=== PATIENT | male | born 1965 | race African-American/Black ===

== ENCOUNTER 2018-11-26 13:41 | Emergency (ER) | payer OTHER ==
[2018-11-26 13:46] VITALS: TEMP 98.2; BMI 22.1
--- NOTE | 2018-11-26 15:21 | PDOC ---
History of Present Illness - General Chief Complaint: Pain Stated Complaint: SWOLLEN GROIN Time Seen by Provider: 11/26/18 15:18 History Source: Patient Exam Limitations: No Limitations - History of Present Illness Initial Comments: 53 yo M w a pmh of HTN, HLD, Asthma, GERD, Depression, schizophrenia, and osteoarthritis presents to the ER with a month of right testicular pain. He states the pain has not worsened but he came to the hospital to be evaluated bc it has not gone away and now he is concerned. He states his pain is currently an 8/10. He describes the pain as a stabbing sensation which does not radiate. The pain is isolated to his testicles and he has no penile pain. He denies having any recent weight loss, abdominal pain, nausea, vomiting, chest pain, SOB, difficulty breathing, dysuria, frequency, urgency, recent fevers, chills, or infections. PCP: Dr. Gilbert PSH: right hip arthroplasty Allergies: Aripiprazole, penicillins, ziprasidone Social Hx: Smokes 2 PPD for many years. Denies alcohol or other substance usage. Past History - Past Medical History Allergies/Adverse Reactions: Allergies Allergy/AdvReac Type Severity Reaction Status Date / Time aripiprazole [From Abilify] Allergy Verified 11/26/18 13:47 Penicillins Allergy Verified 11/26/18 13:47 ziprasidone HCl [From Geodon] Allergy Verified 11/26/18 13:47 ziprasidone mesylate Allergy Verified 11/26/18 13:47 [From Geodon] Home Medications: Ambulatory Orders Albuterol Sulfate [Proventil HFA Inhaler -] 2 inh PO BID 11/26/18 Aspirin [ASA -] 325 mg PO DAILY 11/26/18 Ciprofloxacin [Cipro -] 500 mg PO Q12H #28 tablet 11/26/18 Clozapine 200 mg PO HS 11/26/18 Divalproex Sodium [Depakote ER] 500 mg PO DAILY 11/26/18 Divalproex Sodium [Depakote ER] 750 mg PO HS 11/26/18 Docusate Sodium [Colace -] 100 mg PO BID 11/26/18 Famotidine [Pepcid -] 20 mg PO DAILY 11/26/18 Ferrous Sulfate [Feosol] 325 mg PO DAILY 11/26/18 Metoprolol Succinate 25 mg PO DAILY 11/26/18 Mv-Mins/Folic Acid/Guarana/Caf [One Daily Tablet] 1 each PO DAILY 11/26/18 Omeprazole Magnesium [Prilosec Otc] 20 mg PO DAILY 11/26/18 Risperidone [Risperdal -] 1 mg PO HS 11/26/18 Risperidone [Risperdal] 3 mg PO DAILY 11/26/18 Sertraline HCl [Zoloft -] 100 mg PO DAILY 11/26/18 clonazePAM [Klonopin -] 0.5 mg PO HS 11/26/18 Anemia: No Asthma: No Cancer: No Cardiac Disorders: No CVA: No COPD: Yes CHF: No Dementia: No Diabetes: No GI Disorders: Yes (GERD) Disorders: No HTN: Yes Hypercholesterolemia: Yes Liver Disease: No Seizures: No Thyroid Disease: No - Suicide/Smoking/Psychosocial Hx Smoking History: Never smoked Have you smoked in the past 12 months: Yes Number of Cigarettes Smoked Daily: 10 'Breaking Loose' booklet given: 05/23/14 Hx Alcohol Use: No Drug/Substance Use Hx: No Substance Use Type: None Hx Substance Use Treatment: No Review of Systems - Review of Systems Able to Perform ROS?: Yes Comments:: CONSTITUTIONAL: Absent: fever, no chills, no fatigue EYES: Absent: visual changes ENT: Absent: ear pain, no sore throat CARDIOVASCULAR: Absent: chest pain, no palpitations RESPIRATORY: Absent: cough, no SOB GI: Absent: abdominal pain, no nausea, no vomiting, no constipation, no diarrhea GENITOURINARY: Present: Testicular pain Absent: dysuria, no frequency, no hematuria MUSKULOSKELETAL: Absent: back pain, no arthralgia, no myalgia SKIN: Absent: rash NEURO: Absent: headache *Physical Exam - Vital Signs Last Vital Signs Temp Pulse Resp BP Pulse Ox 98.2 F 103 H 18 100/61 100 11/26/18 13:45 11/26/18 13:45 11/26/18 13:45 11/26/18 13:45 11/26/18 13:45 - Physical Exam Comments: TESTICLES: Right: Painful to touch. Enlarged and Hard. Does not illuminate with a flashlight. Left: Normal in size and not tender to palpation. GENERAL: Well-appearing, well-nourished. No apparent distress. HEENT: Normocephalic, atraumatic. PERRL, EOM intact. CARDIOVASCULAR: Normal S1, S2. tachycardic rate and regular rhythm. PULMONARY: No evidence of respiratory distress. Lungs clear to auscultation bilaterally. No wheezing, rales or rhonchi. ABDOMEN: Soft, non-distended, non-tender. EXTREMITIES: Normal ROM in all four extremities. No gross deformities. SKIN: Warm, dry. No rash NEUROLOGICAL: No focal neurological deficits. ED Treatment Course - LABORATORY CBC & Chemistry Diagram: 11/26/18 15:48 11/26/18 15:48 Medical Decision Making - Medical Decision Making 53 yo M w a pmh of HTN, HLD, Asthma, GERD, Depression, schizophrenia, and osteoarthritis presents to the ER with a month of right testicular pain. He states the pain has not worsened but he came to the hospital to be evaluated bc it has not gone away and now he is concerned. He states his pain is currently an 8/10. He describes the pain as a stabbing sensation which does not radiate. The pain is isolated to his testicles and he has no penile pain. VS: mildly tachy, otherwise wnl DDx IBNLT: Testicular torsion, hydrocele, epidydimitis, orchitis, UTI, prostatitis, testicular cancer, hernia. Plan: Labs, Urine - tumor markers, Testicular US, CXR, EKG, analgesia, re- assess. Labs unremarkable Urine shows gross infection w 3+ LE and greater than 500 wbcs. - will start treatment in ED with probably Cipro - Will give patient Uro follow up as well. Testicular US shows epididymo-orchitis. - Will treat with cipro. *DC/Admit/Observation/Transfer Diagnosis at time of Disposition: Epididymitis with abscess, Orchitis and epididymitis, Testicular pain, right - Discharge Dispostion Disposition: HOME Condition at time of disposition: Stable Decision to Admit order: No - Prescriptions Prescriptions: Ciprofloxacin [Cipro -] 500 mg PO Q12H #28 tablet - Referrals Referrals: Bassam Nick MD [Staff Physician] - - Patient Instructions Printed Discharge Instructions: Epididymitis, DI for Epididymitis Additional Instructions: You came into the ER with Testicular pain. We looked at your urine and did an ultrasound of your testicle which showed that you have a bad infection in your testicle called epidydimitis and orchitis. We are sending antibiotics to your pharmacy for you to take twice a day for the next 14 days. YOU MUST CALL THE UROLOGIST WE ARE REFERRING YOU TO AND SCHEDULE AN APPOINTMENT SOON POSSIBLE IN THE NEXT 48 HOURS. Come back to the ER immediately if your pain worsens, you get a fever, or have any other new or worsening concerns. Thank you for coming to the [facility] ER. We hope you feel better soon! Print Language: BURKINAN - Post Discharge Activity
[2018-11-26] MEDS ORDERED: SODIUM CHLORIDE 0.9% 500 ML INFUS.BAG IV ONE (15:28)
[2018-11-26] MEDS ORDERED: IBUPROFEN 400 MG TABLET (FP) PO ONE ×2 (15:46→18:31)
[2018-11-26 15:58] LABS: BASO % 0.6 % (0-2.0); EOS % 0.6 % (0-4.5); HEMATOCRIT 36.1 % (35.4-49); HEMOGLOBIN 11.8 GM/dL (11.7-16.9); LYMPH % 19.7 % (8-40); MCH 30.1 pg (25.7-33.7); MCHC 32.6 g/dl (32.0-35.9); MEAN CELL VOLUME 92.6 fl (80-96); MEAN PLT VOLUME 7.1 fl (7.5-11.1); MONO % 12.3 % (3.8-10.2); NEUT % 66.8 % (42.8-82.8); PLATELET COUNT 320 K/MM3 (134-434)
--- NOTE | 2018-11-26 16:20 | PDOC ---
Attending Attestation - HPI HPI: 11/26/18 16:40 The patient is a 53 year old male, with a significant past medical history of HTN, HLD, Asthma, GERD, Depression, schizophrenia, and osteoarthritis, who presents to the emergency department with, 2 months of intermittent, pressure- like right sided testicular pain and hardening worsening with movement. The patient is not sexually active. He denies any recent fevers, chills, headache or dizziness. He denies any recent nausea, vomit, diarrhea or constipation. He denies any recent chest pain or shortness of breath. He denies any recent dysuria, frequency, urgency or hematuria. Allergies: Aripiprazole, penicillins, ziprasidone Past surgical history: right hip arthroplasty Social History: 2PPD Smoker. Primary Care Physician: Dr. Gilbert - Physicial Exam PE: 11/26/18 16:45 GENERAL: Awake, alert, and fully oriented, in no acute distress HEAD: No signs of trauma ABDOMEN: Soft, nontender. No guarding, no rebound. No masses Testicles: +Right: Tenderness but vertical lining. Mildly larger than left. Sensation intact. Negative erythema or lesions. EXTREMITIES: Normal range of motion, no edema. No clubbing or cyanosis. No cords, erythema, or tenderness NEUROLOGICAL: Cranial nerves II through XII grossly intact. Normal speech. SKIN: Warm, Dry, normal turgor, no rashes or lesions noted. <Mare Castaneda - Last Filed: 11/26/18 16:45> - Resident Resident Name: Raul Seals - ED Attending Attestation I have performed the following: I have examined & evaluated the patient, The case was reviewed & discussed with the resident, I agree w/resident's findings & plan, Exceptions are as noted - Medical Decision Making 11/26/18 16:20 A portion of this note was documented by scribe services under my direction. I have reviewed the details of the note, within reason, and agree with the documentation with the following case summary and management plan written by me. Patient treated in the ED. Nursing notes are reviewed and incorporated into the medical decision-making. Vital signs reviewed. Peripheral IV access obtained by the nurse, laboratory studies are drawn and sent, reviewed and interpreted by myself. Vital Signs Temp Pulse Resp BP Pulse Ox 98.2 F 103 H 18 100/61 100 11/26/18 13:45 11/26/18 13:45 11/26/18 13:45 11/26/18 13:45 11/26/18 13:45 53-year-old male with history of hypertension, hyperlipidemia, asthma, GERD, depression, schizophrenia Noster arthritis presents with approximately 2 months of right testicular pain. Patient reports that the pain is persistent but states he is not follow-up with her doctor. No dysuria or fever abdominal pain. Differential includes orchitis, epididymitis, testicular cancer. We'll obtain labs, testicular ultrasound and reassess. 11/26/18 17:39 CBC, BMP 11/26/18 15:48 11/26/18 15:48 CMP Sodium 140 mmol/L (136-145) 11/26/18 15:48 Potassium 4.5 mmol/L (3.5-5.1) 11/26/18 15:48 Chloride 103 mmol/L (98-107) 11/26/18 15:48 Carbon Dioxide 28 mmol/L (21-32) 11/26/18 15:48 Anion Gap 9 MMOL/L (8-16) 11/26/18 15:48 BUN 16 mg/dL (7-18) 11/26/18 15:48 Creatinine 0.9 mg/dL (0.55-1.3) 11/26/18 15:48 Creat Clearance w eGFR 87.61 (>60) 11/26/18 15:48 Random Glucose 103 mg/dL (74-106) 11/26/18 15:48 Calcium 8.9 mg/dL (8.5-10.1) 11/26/18 15:48 Total Bilirubin 0.3 mg/dL (0.2-1) 11/26/18 15:48 AST 12 U/L (15-37) L 11/26/18 15:48 ALT 12 U/L (13-61) L 11/26/18 15:48 Alkaline Phosphatase 74 U/L (45-117) 11/26/18 15:48 Total Protein 7.3 g/dl (6.4-8.2) 11/26/18 15:48 Albumin 3.0 g/dl (3.4-5.0) L 11/26/18 15:48 Lipase 207 U/L (73-393) 11/26/18 15:48 Urine Test Results Urine Color Dk yellow 11/26/18 16:13 Urine Appearance Cloudy 11/26/18 16:13 Urine pH 5.0 (5.0-8.0) 11/26/18 16:13 Ur Specific Roberts 1.032 (1.010-1.035) 11/26/18 16:13 Urine Protein Trace (NEGATIVE) 11/26/18 16:13 Urine Glucose (UA) Negative (NEGATIVE) 11/26/18 16:13 Urine Ketones Trace (NEGATIVE) H 11/26/18 16:13 Urine Blood Trace (NEGATIVE) 11/26/18 16:13 Urine Nitrite Negative (NEGATIVE) 11/26/18 16:13 Urine Bilirubin 1+ (NEGATIVE) H 11/26/18 16:13 Ur Leukocyte Esterase 3+ (NEGATIVE) H 11/26/18 16:13 WIll need to treat with ciprofloxacin. <Christiano Roblero - Last Filed: 11/26/18 17:39> Attestations - Attestations 11/26/18 16:45 Documentation prepared by Mare Castaneda, acting as medical records tech for Christiano Roblero MD. <Mare Castaneda - Last Filed: 11/26/18 16:45>
[2018-11-26 16:28] LABS: ALK PHOS 74 U/L (45-117); ANION GAP 9 MMOL/L (8-16); BILIRUBIN,TOTAL 0.3 mg/dL (0.2-1); BLOOD UREA NITROGEN 16 mg/dL (7-18); CALCIUM 8.9 mg/dL (8.5-10.1); CHLORIDE 103 mmol/L (98-107); CO2 28 mmol/L (21-32); CREATININE 0.9 mg/dL (0.55-1.3); GLUCOSE,RANDOM 103 mg/dL (74-106); LIPASE 207 U/L (73-393); POTASSIUM 4.5 mmol/L (3.5-5.1); SGOT/AST 12 U/L (15-37); SGPT/ALT 12 U/L (13-61); SODIUM 140 mmol/L (136-145); TOT PROT 7.3 g/dl (6.4-8.2)
[2018-11-26 16:29] LABS: EPI CELLS 0.3 /HPF (0-5); HCG,QUALITATIVE URINE Negative; URINE APPEARANCE CLOUDY; URINE BACTERIA 37.4 /hpf (NEGATIVE); URINE BILIRUBIN 1+ (NEGATIVE); URINE CASTS 4 /hpf (0-8); URINE COLOR DK YELLOW; URINE GLUCOSE (UA) NEGATIVE (NEGATIVE); URINE KETONE TRACE (NEGATIVE); URINE LEUK ESTERASE 3+ (NEGATIVE); URINE NITRITE NEGATIVE (NEGATIVE); URINE PROTEIN TRACE (NEGATIVE); URINE RBC 11 /hpf (0-4); URINE WBC 532 /hpf (0-5)
[2018-11-26] MEDS ORDERED: CIPROFLOXACIN 500 MG TABLET (RESTRICTED TO ID) PO ONE (18:47)
[2018-11-26 20:18] VITALS: BP 108/61; PULSE 108
--- NOTE | 2018-11-27 10:32 | EKG ---
Test Reason : Blood Pressure : / mmHG Vent. Rate : 097 BPM Atrial Rate : 097 BPM P-R Int : 142 ms QRS Dur : 074 ms QT Int : 322 ms P-R-T Axes : 056 001 023 degrees QTc Int : 408 ms NORMAL SINUS RHYTHM NORMAL ECG WHEN COMPARED WITH ECG OF 28-MAY-2014 00:53, QT HAS SHORTENED Confirmed by LAEXEY KIDD MD ([id number]) on 11/27/2018 10:32:16 AM Referred By: Confirmed By:ALEXEY KIDD MD
== END 2018-11-26 22:25 | disposition home or self-care (01) ==
LOC: JER 13:41
DX: N45.3 Epididymo-orchitis (principal); N39.0 Urinary tract infection, site not specified; I10 Essential (primary) hypertension; E78.5 Hyperlipidemia, unspecified; J45.909 Unspecified asthma, uncomplicated; K21.9 Gastro-esophageal reflux disease without esophagitis; F20.9 Schizophrenia, unspecified; M19.90 Unspecified osteoarthritis, unspecified site
CPT/HCPCS: 36415; 71046-TC-FY; 76870-TC; 80053; 81003; 82105; 83690; 84702; 84703; 85025; 87086; 87186; 93005; 93010; 99282-25